=== PATIENT | female | born 1970 | race Hispanic/Latino ===

== ENCOUNTER 2017-08-29 10:30 | Inpatient (IN) | payer OTHER ==
[2017-08-29 11:42] LABS: Basophils # (Auto) 0.1 K/mm3 (0.0-0.1); Basophils % (Auto) 0.5 % (0.0-1.8); Eosinophils # (Auto) 0.2 K/mm3 (0.0-0.4); Eosinophils % (Auto) 1.6 % (0.0-4.3); Hematocrit 40.5 % (30.3-42.9); Hemoglobin 13.4 gm/dl (10.1-14.3); Lymphocytes # (Auto) 2.3 K/mm3 (1.2-5.4); Lymphocytes % (Auto) 23.5 % (13.4-35.0); Mean Corpuscular HGB Conc 33 % (30-34); Mean Corpuscular Hemoglobin 29 pg (28-32); Mean Corpuscular Volume 88 fl (79-97); Monocytes # (Auto) 0.7 K/mm3 (0.0-0.8); Monocytes % (Auto) 7.6 % (0.0-7.3); Platelet Count 288 K/mm3 (140-440); Red Blood Count 4.62 M/mm3 (3.65-5.03); Red Cell Distribution Width 16.1 % (13.2-15.2)
--- NOTE | 2017-08-29 11:54 | Anesthesia Consultation ---
Anesthesia Consult and Med Hx Date of service: 08/29/17 - Airway Anesthetic Teeth Evaluation: Good ROM Head & Neck: Adequate Mental/Hyoid Distance: Inadequate (2.5FB) Mallampati Class: Class III Intubation Access Assessment: Possibly Difficult - Pulmonary Exam CTA: Yes - Cardiac Exam Cardiac Exam: RRR - Pre-Operative Health Status ASA Pre-Surgery Classification: ASA2 Proposed Anesthetic Plan: General - Pulmonary Hx Smoking: Yes (Former) - Central Nervous System Hx Psychiatric Problems: No - Endocrine Hx Hypothyroidism: Yes - Hematic Hx Anemia: Yes - Other Systems Hx Cancer: No
[2017-08-29 12:02] LABS: BUN/Creatinine Ratio 13; Blood Urea Nitrogen 10 mg/dL (7-17); Hemolysis Index 11
--- NOTE | 2017-08-30 18:51 | History and Physical Report ---
History of Present Illness Date of examination: 08/29/17 History of present illness: Patient has been reassessed/reevaluated. H&P has been reviewed. No interval changes. This is a 46 years old female who presents with uterine fibroids. She complains of abdominal pain, abdominal pressure and pelvic pain. The patient complains of menorrhagia, metrorrhagia, dysmenorrhea, abnormal periods and pelvic pain, but denies abnormal pap smears, post-coital bleeding, abnormal vaginal discharge, breast mass or lumps, depression, anxiety, urinary symptoms, chest pain, palpitations, shortness of breath, leg swelling, back pain, abdominal pain, headaches and bowel problems. The patient notes that she is sexually active. The patient reports that she has regular menses. The patient also presents with menstrual disorder. She complains of heavy bleeding, dysmenorrhea, history of fibroids and cramping, but denies irregular menses, mid-cycle spotting, lack of menses, clotting, history of ovarian cysts, history of thyroid disease, history of PCOS, history of bleeding disorder, lightheadedness and fatigue. Menstrual flow lasts > 7 days. Patient reports that for pain she uses ibuprofen. The patient also presents with uterine fibroids. She complains of abdominal pressure, pelvic pain, pelvic pressure and menorrhagia, but denies abdominal pain and intermenstrual bleeding. Prior to today's visit the patient has had US of pelvis. Patient's symptoms when present disrupts her normal daily activities Patient desires definitive treatment Vital Signs: Patient Profile: 46 Years Old Female Height: 66 inches (167.64 cm) Weight: 237 pounds BMI: 38.25 BSA: 2.15 Past History : 2 Term Births: 2 Premature Births: 0 Living Children: 2 Para: 2 Mult. Births: 0 Prev : 1 Prev. attempt? success x1 Aborta: 0 Elect. Ab: 0 Spont. Ab: 0 Ectopics: 0 [employer] RE[employer] History Operations: PP Tubal Ligation (1997) Cholecystectomy Abnormal PAP: negative Uterine Anomaly: positive Infection History HIV Risk Eval: no Hx of STD: None Current Allergies (reviewed today): No known allergies Past Medical History: Fibroids Hypothyroidism (2018) Past Surgical History: PP Tubal Ligation (1997) Cholecystectomy Family History Summary: Other family member - Has Family History of Coronary Heart Disease - Entered On : 04/24/2017 Other family member - Has Family History of Diabetes - Entered On: 04/24/2017 Other family member - Has Family History Breast Cancer - Entered On: 04/24/2017 Other family member - Has No Family History of Colon Cancer - Entered On: 2017 Other family member - Has No Family History of Ovarvian Cancer - Entered On: Social History: Home healthcare Patient is Has a Smoking History: Patient has never smoked. Risk Factors: Smoked Tobacco Use: Former smoker Smokeless Tobacco Use: Never Passive smoke exposure: no Drug use: no HIV high-risk behavior: no Alcohol use: no Exercise: no Seatbelt use: 100 % Review of Systems General Complains of fatigue. Denies fever, chills, sweats, anorexia, weakness, malaise, weight loss and sleep disorder. Complains of menorrhagia, abnormal vaginal bleeding, pelvic pain and painful periods. Denies vaginal discharge, incontinence, dysuria, hematuria, urinary frequency, amenorrhea, genital sores, decreased libido, painful sex, urinary urgency, hot flashes, vaginal dryness, vaginal itching and vaginal odor. CV Denies chest pains, palpitations, syncope, dyspnea on exertion, orthopnea, PND and peripheral edema. Resp Denies cough, dyspnea at rest, excessive sputum, hemoptysis, wheezing and pleurisy. GI Denies nausea, vomiting, diarrhea, constipation, change in bowel habits, abdominal pain, melena, hematochezia, jaundice, gas/bloating, indigestion/ heartburn, dysphagia and odynophagia. Breast Denies left breast lump, right breast lump, nipple discharge, bloody discharge from nipple, breast pain, abnormal mammogram and breast enlargement. Psych Denies depression, anxiety, irritability and mood swings. Patient has been reassessed/reevaluated/re-examined. H&P has been reviewed. No interval changes. Past History Past Medical History: hyperthyroidism (See HPI), other Past Surgical History: , Other (See HPI) Social history: (See HPI), full code Family history: other (See HPI) Medications and Allergies Allergies Allergy/AdvReac Type Severity Reaction Status Date / Time No Known Allergies Allergy Verified 08/31/17 06:32 Home Medications Medication Instructions Recorded Confirmed Last Taken Type Ferrous Sulfate [Iron] 325 mg PO DAILY 08/28/17 08/28/17 Unknown History Levothyroxine [Synthroid] 75 mcg PO QAM 08/28/17 08/28/17 Unknown History Review of Systems Constitutional: other (See HPI) Exam - Physical Exam Narrative exam: HEENT: normocephalic, no lesions or deformities Neck/Thyroid: supple, thyroid normal Skin no significant abnormal lesions or rashes Chest: respiratory effort normal, clear to auscultation Breasts: skin/areolae normal, no masses, no nipple discharge, no erythema/warmth /tenderness, and axillae normal. CV: regular, normal S1-S2, no murmur, no rub, no gallop Abdomen: obese normal bowel sounds, soft, nontender, no HSM Well healed pfannenstiel scar Musculoskeletal: grossly normal ROM in joints, no joint tenderness or muscle weakness Neuro: no gross anomalities Extremities: no clubbing, cyanosis, or edema [employer] RE[employer]ER Exams Vulva/Vagina: No lesions, normal BUS, normal rugae Cervix: No lesions; no cervical motion tenderness Uterus: enlarged palpated at umbilicus Adnexae: Unable to palpate due to uterine size Rectovaginal: exam defered - Constitutional Vitals: Temp Pulse Resp BP Pulse Ox 98 F 88 18 130/78 08/29/17 10:55 08/29/17 10:55 08/29/17 10:55 08/29/17 10:55 Results - Labs CBC & Chem 7: 08/29/17 11:05 08/29/17 11:05 Assessment and Plan - Patient Problems (1) Intramural leiomyoma of uterus Status: Acute Plan to address problem: Diagnosis explained to patient . Questions answered. Discussed with patient various medical, surgical and radiological therapies common for treatment including myomectomy hysterectomy and uterine artery embolization Patient desires definitive treatment Patient desires hysterectomy Discussed risks and benefits of laparotomy, laparoscopy, vaginal and robotic assisted approaches for hysterectomies Patient desires a total abdominal hysterectomy. Consent reviewed and signed . The risks and alternatives for this surgery were reviewed with the patient. Discuss the risks of the surgery including infection , bleeding possibly heavy enough to require a blood transfusion, possible damage to bowel, bladder or ureter. Patient understands if her ovaries are removed she will become menopausal. Her questions were answered. Patient understands and desires to proceed . Patient desires oophorectomy (2) Menorrhagia Status: Acute Qualifiers: Menorrahagia type: with regular cycle Qualified Code(s): N92.0 - Excessive and frequent menstruation with regular cycle Plan to address problem: Probably secondary to # 1 (3) Dysmenorrhea Status: Acute Plan to address problem: Probably secondary to # 1 (4) Hypothyroid Status: Acute Qualifiers: Hypothyroidism type: acquired Qualified Code(s): E03.9 - Hypothyroidism, unspecified (5) BMI 37.0-37.9, adult Status: Chronic
[2017-08-31] MEDS ORDERED: NACL BACTERIOSTATIC INFILTRATI ONE (06:24)
[2017-08-31] MEDS ORDERED: XYLOCAINE MPF 2% ONE (07:09)
[2017-08-31] MEDS ORDERED: ZEMURON IV ONE (07:09)
[2017-08-31] MEDS ORDERED: DILAUDID ONE ×2 (07:09→10:43)
[2017-08-31] MEDS ORDERED: DIPRIVAN 10 MG/ML IV ONE (07:09)
[2017-08-31] MEDS ORDERED: ZOFRAN ONE (07:09)
[2017-08-31] MEDS ORDERED: LACTATED RINGERS 1,000 ML ONE ×2 (07:11→11:04)
[2017-08-31] MEDS ORDERED: SUBLIMAZE IV ONE (07:17)
[2017-08-31] MEDS ORDERED: VERSED IV PRN (07:17)
[2017-08-31] MEDS ORDERED: DECADRON ONE (07:28)
--- NOTE | 2017-08-31 07:48 | Anesthesia Consultation ---
Anesthesia Consult and Med Hx - Airway Anesthetic Teeth Evaluation: Poor ROM Head & Neck: Adequate Mental/Hyoid Distance: Adequate Mallampati Class: Class II Intubation Access Assessment: Probably Good - Pre-Operative Health Status ASA Pre-Surgery Classification: ASA2 Proposed Anesthetic Plan: General - Pulmonary Hx Smoking: Yes (Former) - Central Nervous System Hx Psychiatric Problems: No - Endocrine Hx Hypothyroidism: Yes - Hematic Hx Anemia: Yes - Other Systems Hx Cancer: No
--- NOTE | 2017-08-31 07:50 | Anesthesia Day of Surgery ---
Anesthesia Day of Surgery - Day of Surgery Patient Examined: Yes Patient H&P Reviewed: Yes Patient is NPO: Yes
[2017-08-31] MEDS ORDERED: LACTATED RINGERS 1,000 ML IV SCH (08:00)
[2017-08-31] MEDS ORDERED: ANCEF/STERILE WATER 2 GM/20 ML 2 GM/20 ML SYRINGE IV NR (08:00)
[2017-08-31] MEDS ORDERED: NEURONTIN PO NR (08:00)
[2017-08-31] MEDS ORDERED: QUELICIN ONE (08:12)
[2017-08-31] MEDS ORDERED: METHYLENE BLUE ONE (09:17)
[2017-08-31] MEDS ORDERED: NACL 0.9% IR ONE (10:00)
[2017-08-31] MEDS ORDERED: METHYLENE BLUE IRRIGATION ONE (10:00)
--- NOTE | 2017-08-31 10:31 | Operative Report ---
Operative Report Operative Report: Date of procedure: 08/31/2017 Pre-operative diagnosis: Symptomatic leiomyomata with menorrhalgia, pelvic pain and dysmenorrhea Post-operative diagnosis: Same plus extensive pelvic adhesive disease Procedure name(s): Supracervical abdominal hysterectomy with bilateral salpingo- oophorectomy and lysis of adhesions Surgeon: Louis Harris MD Debeader: Dipak Michelle Anesthesia: General [] EBL: 250 mL Complications: None Findings: Patient with uterus approximately 20-22 weeks in size with multiple leiomyomata normal appearing adnexa bilaterally but with adhesions to anterior abdominal wall and intestines posteriorly. Dense adhesion between the anterior uterus and bladder. It is during the peritoneum there was foreign body free- floating patient's abdomen there was some black in color and firm, sure exactly what this was Specimen(s): Uterine fundus with bilateral adnexa and unknown foreign body Procedure: Patient was brought into the operating room where general anesthesia was induced difficulty. She was placed in supine position. Prepped and draped in the usual sterile manner. A Pfannenstiel incision was made with a scalpel through previous scar. This incision was taken out and the fascia. The fascia was nicked in the midline and this incision was extended laterally with Winkler scissors. The fascia was then from the rectus muscles were thick adhesions both caudally and cephalically. The peritoneum was entered by grasping with hemostat and lifted high and cut with Metzenbaum scissors. No evidence of internal organ damage was noted. This incision was extended vertically. Patient was placed in Trendelenburg position. No evidence of damage to the bladder. The large uterus was then pulled through the incision. An O'Manuela O'Soriano self-retaining retractor was then placed incision. The bowel was packed out of the operative field. With the findings as noted above. The uterine fundus was then grasped with a tenaculum. Starting on the patient' s right side the round ligament was double clamped cut and ligated. Anteriorly the bladder flap was formed. An avascular window was formed [id number] very complex and the infundibulopelvic pelvis. The ureter was palpated and found to be out of the operative field. The ovarian vessels were then double clamped and ligated with 0 Vicryl which was used throughout the case. The uterine vessels were then skeletonized clamped. The same procedure was then performed on the patient's left side and ligating the round ligament clamp and then cutting the ovarian vessels and again the ureter was palpated out of the operative field. With the bladder flap pushed away further and the left uterine vessels clamped and cut. The bladder was pushed away from anterior uterus but had thick scarring in the midline where the delineation between the bladder and the uterus very difficult. The uterine vasculature were clamped with a straight Sher clamp and cut bilaterally as far as I could safely on both sides. Due to the dense bladder adhesions made the decision to convert to supracervical hysterectomy .patient still had approximately 3 cm the cervix left that I could not safely remove without damaging the bladder. Clamps were placed across the cervical neck and the specimen was cut away with Jergensen scissors. Attempted to ablate the possible endometrial tissue that could be in the cervical neck with the Bovie. The cervical stump was then closed with Jarad stitches on each corner and a [id number] suture in the midline. With good hemostasis. The pelvis was then copiously irrigated all pedicles were found to be hemostatic. The ureters were identified bilaterally by palpation and found to be functioning normally. The bladder was filled with 120 mL of dilute methylene blue and found to be intact without evidence of cystotomy. The bladder was then drained. Interceed was placed along the cervical stump an attempt to prevent postop adhesions. The rectus muscles were approximated with 0 Vicryl. The rectus muscles were inspected and found to be hemostatic and irrigation Bovie. The fascia was then closed in a running manner with 0 Vicryl. This closure was hemostatic at the irrigation and Bovie. A 3-0 Vicryl was used to close the space above the fascia. The skin was then reapproximated subcuticularly with 4-0 Monocryl. Surgical glue was placed over this closure. The patient tolerated the procedure well. She was awakened in the operating room. Accompanied to recovery room in good condition. Instrument count correct 3
[2017-08-31] MEDS: DILAUDID IV PRN ×2 (10:45→10:55)
[2017-08-31] MEDS ORDERED: CLIMARA TD SCH ×2 (11:00→20:09)
[2017-08-31] MEDS ORDERED: DILAUDID PCA 6MG/30ML IV SCH (11:00)
[2017-08-31] MEDS: SYNTHROID PO SCH (12:03)
[2017-08-31] MEDS: D5LR 1,000 ML IV SCH ×2 (14:00→23:25)
[2017-08-31] MEDS: ANCEF/NS 1 GM/50 ML 1 GM/50 ML BAG IV SCH (16:10)
--- NOTE | 2017-08-31 18:17 | Event Note ---
Date: 08/31/17 Day of surgery. Discuss operative findings with patient and questions answered. Patient without fever. Will have up in a chair this evening good urine output. We will continue routine postoperative care.
--- NOTE | 2017-08-31 20:12 | Event Note ---
Date: 08/31/17 Received call from RN stating patient states shewas to have a Climara patch placed, according to RN patch was placed this am however on examining patient no patch is present and she now requests an order for patch. Order placed in EMR
[2017-08-31] MEDS: COLACE PO SCH (21:49)
[2017-09-01] MEDS: ANCEF/NS 1 GM/50 ML 1 GM/50 ML BAG IV SCH
[2017-09-01 05:45] LABS: Hematocrit 37.7 % (30.3-42.9); Hemoglobin 12.2 gm/dl (10.1-14.3)
[2017-09-01] MEDS: COLACE PO SCH ×2 (10:00→22:00)
[2017-09-01] MEDS: SYNTHROID PO SCH (10:04)
[2017-09-01] MEDS: NORCO 5/325 PO PRN ×3 (10:04→21:33)
--- NOTE | 2017-09-01 15:58 | Progress Note ---
Assessment and Plan - Patient Problems (1) S/P abdominal supracervical subtotal hysterectomy Current Visit: Yes Status: Acute Plan to address problem: -routine post op care -cont ambulation -cont IS -d/c home in am if continues to do well. Subjective - Subjective Date of service: 09/01/17 Principal diagnosis: POD #1 s/p supracervical Hyst with BSO Interval history: Pt doing well and tolerating a regular diet. She does report having some burning at the incision but denies any pain at this time. She has tolerated a clear diet and desires a regular diet. Will do so for dinner. No chest pain, SOB or palpitations. Patient reports: appetite normal, voiding normally, pain well controlled, flatus , bowel movement, ambulating normally, no dizzy ambulation, no nauseated Objective - Vital Signs Latest vital signs: Vital Signs Temp Pulse Resp BP Pulse Ox 09/01/17 13:00 98.7 F 90 20 143/81 09/01/17 08:35 98.2 F 96 H 20 131/71 09/01/17 05:20 18 09/01/17 04:10 98.4 F 82 20 129/72 09/01/17 01:15 98.0 F 78 20 126/73 09/01/17 00:51 20 08/31/17 23:15 18 08/31/17 22:31 18 08/31/17 20:25 98.8 F 82 20 117/75 08/31/17 19:35 18 08/31/17 18:30 16 08/31/17 16:10 97.8 F 76 20 131/83 93 Intake and Output 09/01/17 09/01/17 09/01/17 06:59 14:59 22:59 Intake Total 240 600 Output Total 2500 700 Balance -2260 -100 Intake: Oral 240 600 Output: Urine 2500 700 Indwelling Catheter 2500 Void 700 Other: Total, Intake Amount 240 240 Total, Output Amount 900 400 - Exam Cardiovascular: Present: Normal S1, Normal S2 Lungs: Present: Clear to auscultation Abdomen: Present: normal appearance, soft, normal bowel sounds. Absent: distention, tenderness, guarding Extremities: Present: normal. Absent: tenderness, edema Deep Tendon Reflex Grade: Normal +2 Incision: Present: normal, dry, intact (open to air)
[2017-09-02] MEDS: NORCO 5/325 PO PRN ×2 (07:29→12:15)
[2017-09-02] MEDS: COLACE PO SCH (10:07)
[2017-09-02] MEDS: SYNTHROID PO SCH (10:07)
[2017-09-02 13:02] VITALS: BP 130/85
--- NOTE | 2017-09-02 13:08 | Discharge Summary ---
<ROLAND GOMEZ - Last Filed: 09/02/17 13:04> Providers - Providers Date of Admission: 08/31/17 06:01 Date of discharge: 09/02/17 (pt is ready for d/c) Attending physician: TRUDI KHANNA Primary care physician: JEANETTE FELIX Hospitalization Reason for admission: other (IDANIA) Incision: normal, dry, intact Discharge diagnosis: other (s/p total hysterectomy supracervical) Hospital course: uncomplicated total abdominal supra cervical hysterectomy Pt w/o complaint VSS Incision D&I Pt has ambulated w/o difficulty Tolerated a regular diet without N&V. Doing well s/p IDANIA, supra cervical P: d/c today with instructions Pt has a postoperative appt on 09-07-17 Consulted with for d/c Condition at discharge: Good Disposition: DC- TO HOME OR SELFCARE - Discharge Diagnoses (1) S/P abdominal supracervical subtotal hysterectomy Status: Acute Comment: rto 09-07-17 for postoperative care Plan - Discharge Medications Prescriptions: Ibuprofen [Motrin 800 MG tab] 800 mg PO Q6H PRN #30 tablet PRN Reason: Pain oxyCODONE /ACETAMINOPHEN [Percocet 5/325 mg] 1 - 2 tab PO Q4H PRN #30 tablet PRN Reason: Pain, Moderate - Provider Discharge Summary Activity: routine, no sex for 6 weeks, no heavy lifting 4 weeks, no strenuous exercise Diet: routine Instructions: routine Additional instructions: [] Smoking cessation referral if applicable(refer to patient education folder for contact #) [] Refer to [facility] Booklet Call your doctor immediately for: * Fever > 100.5 * Heavy vaginal bleeding ( >1 pad per hour) * Severe persistent headache * Shortness of breath * Reddened, hot, painful area to leg or breast * Drainage or odor from incision. * Keep incision clean and dry at all times and follow doctor's instructions regarding bathing/showering - Follow up plan Follow up: JEANETTE FELIX MD [Primary Care Provider] - 7 Days ROLAND GOMEZ CNM [Advanced Practice Nurse] - 09/07/17 (Continue advancing activity and diet as tolerated. Call [phone] with any concerns. Keep your postoperative appointment as scheduled on 09/07/17 take medications as prescribed.) Forms: [facility] Discharge Summary <CATHLEEN FAUSTIN M - Last Filed: 09/02/17 13:31> Providers - Providers Date of Admission: 08/31/17 06:01 Attending physician: TRUDI KHANNA Primary care physician: JEANETTE FELIX Hospitalization - Discharge Diagnoses (1) S/P abdominal supracervical subtotal hysterectomy Status: Acute Comment: rto 09-07-17 for postoperative care Plan - Provider Discharge Summary Additional instructions: [] Smoking cessation referral if applicable(refer to patient education folder for contact #) [] Refer to [facility] Booklet Call your doctor immediately for: * Fever > 100.5 * Heavy vaginal bleeding ( >1 pad per hour) * Severe persistent headache * Shortness of breath * Reddened, hot, painful area to leg or breast * Drainage or odor from incision. * Keep incision clean and dry at all times and follow doctor's instructions regarding bathing/showering
--- NOTE | 2017-09-02 13:33 | Event Note ---
Date: 09/02/17 Agree with NEON SIGN MECH[employer]IC exam an note. Will d/c pt home today and f/u in office in one week.
== END 2017-09-02 14:25 | disposition home or self-care (01) | DRG 743 ==
LOC: 3A 08-31 06:01 → OB 08-31 10:55
PROVIDERS: ADMIT Obstetrics & Gynecology; ATTEND Obstetrics & Gynecology
PROC: 0UT90ZZ Resection of Uterus, Open Approach (ICD-10-PCS; principal; 2017-08-31)
PROC: 0UT70ZZ Resection of Bilateral Fallopian Tubes, Open Approach (ICD-10-PCS; 2017-08-31)
PROC: 0UT20ZZ Resection of Bilateral Ovaries, Open Approach (ICD-10-PCS; 2017-08-31)
PROC: 0TNB0ZZ Release Bladder, Open Approach (ICD-10-PCS; 2017-08-31)
DX: D25.1 Intramural leiomyoma of uterus (principal); N92.0 Excessive and frequent menstruation with regular cycle; F32.9 Major depressive disorder, single episode, unspecified; F41.9 Anxiety disorder, unspecified; N94.6 Dysmenorrhea, unspecified; E03.9 Hypothyroidism, unspecified; M54.9 Dorsalgia, unspecified; Z98.51 Tubal ligation status; Z90.49 Acquired absence of other specified parts of digestive tract; Z87.891 Personal history of nicotine dependence; Z82.49 Family history of ischemic heart disease and other diseases of the circulatory system; Z83.3 Family history of diabetes mellitus; Z85.3 Personal history of malignant neoplasm of breast; Z85.038 Personal history of other malignant neoplasm of large intestine; Z85.43 Personal history of malignant neoplasm of ovary
CPT/HCPCS: 36415; 64450; 80048; 84703; 85014; 85018; 85025; 86850; 86900; 86901; 88302; 88307; C1765; J0330; J0690; J1100; J1170; J2250; J2405; J2704; J3010; J7120; J7121; Q9968